=== PATIENT | male | born 1955 | race Caucasian/White ===

== ENCOUNTER 2021-09-11 09:50 | Day surgery (SDC) | payer OTHER, MEDICARE ==
[~2021-09-11 09:50] MED LIST: Lactated Ringers 1,000 ML IV SCH
--- NOTE | 2021-09-11 11:20 | PCM.PREANE ---
Preanesthetic Assessment - Procedure Proposed Procedure: Colonoscopy - Anesthesia/Transfusion/Family Hx Anesthesia History: Prior Anesthesia Without Reaction Family History of Anesthesia Reaction: No Transfusion History: No Prior Transfusion(s) - Review of Systems General: No Symptoms Pulmonary: No Symptoms (Quit smoking 2002) Cardiovascular: No Symptoms (HTN, HLD) Gastrointestinal: No Symptoms Neurological: No Symptoms Other: Reports: None (h/o kidney stones) - Physical Assessment NPO Status Date: 09/10/21 NPO Status Time: 20:30 Vital Signs: Last Vital Signs Temp 96.4 F L 09/11/21 10:00 Pulse 50 L 09/11/21 10:00 Resp 15 09/11/21 10:00 BP 134/75 09/11/21 10:00 Pulse Ox 99 09/11/21 10:00 Height: 5 ft 10 in Weight: 102.058 kg ASA Class: 2 Mental Status: Alert & Oriented x3 Airway Class: Mallampati = 3 Dentition: Reports: Dentures Thyro-Mental Finger Breadths: 3 Mouth Opening Finger Breadths: 3 ROM/Head Extension: Full Lungs: Clear to Auscultation, Normal Respiratory Effort Cardiovascular: Regular Rate, Regular Rhythm - Lab Values: Laboratory Last Values SARS-CoV-2 RNA (JOCELYNE) NEGATIVE (NEGATIVE) 09/11/21 09:23 - Allergies Allergies/Adverse Reactions: Allergies Allergy/AdvReac Type Severity Reaction Status Date / Time lithium Allergy Jaundice Verified 09/05/21 09:04 - Acknowledgements Anesthesia Type Planned: General Anesthesia Pt an Appropriate Candidate for the Planned Anesthesia: Yes Alternatives and Risks of Anesthesia Discussed w Pt/Guardian: Yes Pt/Guardian Understands and Agrees with Anesthesia Plan: Yes PreAnesthesia Questionnaire HEENT History: Reports: Hard of Hearing, Other (See Below) Other HEENT History: uses reading glasses, has upper and lower dentures Cardiovascular History: Reports: High Cholesterol, Hypertension Respiratory History: Reports: None Genitourinary History: Reports: BPH, Renal Calculus Musculoskeletal History: Reports: Back Pain, Chronic Psychiatric History: Reports: Bipolar Endocrine/Metabolic History: Reports: Obesity/BMI 30+ Hematologic History: Reports: None Immunologic History: Reports: None Oncologic (Cancer) History: Reports: None Dermatologic History: Reports: Other (See Below) Other Dermatologic History: hx of MRSA - Past Surgical History Head Surgeries/Procedures: Reports: None GI Surgical History: Reports: Cholecystectomy, Colonoscopy Male Surgical History: Reports: Lithotripsy ([facility]) Neurological Surgical History: Reports: Lumbar Spine Other Neurological Surgeries/Procedures: unknown type of surgery - denies hardware Musculoskeletal Surgical History: Reports: Other (See Below) Other Musculoskeletal Surgeries/Procedures:: excision of Lipoma - SUBSTANCE USE Tobacco Use Status *Q: Former Tobacco User Tobacco Use Within Last Twelve Months: No Recreational Drug Use History: Yes - HOME MEDS Home Medications: Home Meds Cholecalciferol (Vitamin D3) [Vitamin D3] 2,000 unit PO QPM 09/05/21 [History] Divalproex Sodium [Divalproex Sodium ER] 1,000 mg PO QPM 09/05/21 [History] Naproxen Sodium 220 mg PO ASDIRECTED PRN 09/05/21 [History] Simvastatin 20 mg PO QPM 09/05/21 [History] Tamsulosin HCl 0.4 mg PO QPM 09/05/21 [History] lisinopriL [Lisinopril] 5 mg PO QPM 09/05/21 [History] - CURRENT (IN HOUSE) MEDS Current Meds: Current Medications Lactated Ringer's (Ringers, Lactated) 1,000 mls @ 125 mls/hr IV ASDIRECTED KULWINDER Last Admin: 09/11/21 10:44 Dose: 125 mls/hr Documented by:
[2021-09-11] MEDS ORDERED: Propofol 200 MG/20 ML SDV ONE ×2 (11:21→11:33)
[2021-09-11] MEDS ORDERED: fentaNYL 100 MCG/2 ML SDV ONE (11:21)
--- NOTE | 2021-09-11 12:24 | PCM.OPNOTE ---
- General Post-Op/Procedure Note Date of Surgery/Procedure: 09/11/21 Operative Procedure(s): Colonoscopy Findings: Normal colon dictation number [id number] Pre Op Diagnosis: Screening colonoscopy Post-Op Diagnosis: Normal colonoscopy Anesthesia Technique: Moderate Sedation Primary Surgeon: Stephan Rodriguez Complications: None Condition: Good
--- NOTE | 2021-09-11 12:33 | PCM.POSTAN ---
POST ANESTHESIA ASSESSMENT - MENTAL STATUS Mental Status: Alert, Oriented - VITAL SIGNS Vital Signs: Last Vital Signs Temp 96.4 F L 09/11/21 10:00 Pulse 50 L 09/11/21 10:00 Resp 15 09/11/21 10:00 BP 134/75 09/11/21 10:00 Pulse Ox 99 09/11/21 10:00 - RESPIRATORY Respiratory Status: Respiratory Rate WNL, Airway Patent, O2 Saturation Stable - CARDIOVASCULAR CV Status: Pulse Rate WNL, Blood Pressure Stable - GASTROINTESTINAL GI Status: No Symptoms - PAIN Pain Score: 0 - POST OP HYDRATION Hydration Status: Adequate & Stable
--- NOTE | 2021-09-11 12:56 | PCM48HPAN ---
Post Anesthesia Note - EVALUATION WITHIN 48HRS OF ANESTHETIC Vital Signs in Normal Range: Yes Patient Participated in Evaluation: Yes Respiratory Function Stable: Yes Airway Patent: Yes Cardiovascular Function Stable: Yes Hydration Status Stable: Yes Pain Control Satisfactory: Yes Nausea and Vomiting Control Satisfactory: Yes Mental Status Recovered: Yes Vital Signs: Last Vital Signs Temp 97.3 F 09/11/21 12:25 Pulse 62 09/11/21 12:41 Resp 12 09/11/21 12:41 BP 101/62 09/11/21 12:41 Pulse Ox 96 09/11/21 12:41 - COMMENTS/OBSERVATIONS Free Text/Narrative:: Pt doing well post-op. VSS. No apparent anesthetic complications. Dr. Avni Quevedo
--- NOTE | 2021-09-11 13:09 | OR ---
SURGEON: ADRIAN ARNOLD MD DATE OF PROCEDURE: 09/11/2021 PREOPERATIVE DIAGNOSIS: Screening colonoscopy. POSTOPERATIVE DIAGNOSIS: Normal colonoscopy. PRIMARY SURGEON: Adrian Arnold MD ANESTHESIA: With anesthesiologist. EXTENT OF THE COLONOSCOPY: To the cecum. BOWEL PREP: Very good. LIMITATIONS: None. REASON FOR PROCEDURE: Patient is a pleasant 66-year-old gentleman. His last colonoscopy was 10 years ago that he says was normal. He denies any blood in his stool. Denies any family history of colon cancer. PROCEDURE IN DETAIL: Physical examination was performed. The major risks and benefits associated with the procedure were explained to the patient in detail. The patient verbalized understanding and agreement of the same. The patient was then connected to the appropriate monitoring devices and IV started. EKG, pulse, pulse oximetry, blood pressure, and capnography were monitored throughout the entire procedure. Continuous oxygen and sedation were provided by the anesthesiologist. The patient was placed in left lateral decubitus position. Sedation was began. After adequate sedation was achieved, digital rectal exam was performed. No rectal masses or polyps felt. Now, a well-lubricated Olympus colonoscope was inserted in the rectum and advanced under direct visualization to the level of the cecum. Cecum was identified by both visual and anatomic landmarks. Photographs were taken of the cecal cap and terminal ileum was intubated. The scope was then slowly withdrawn in a circular fashion looking at the color, texture, anatomy, and integrity of mucosa from the cecum to the anal canal. No lesions or polyps were seen. The patient had some very minimal liquid stool which was suctioned and irrigated out for an excellent look at the mucosa. The scope was retroflexed in the rectum. Scope was then completely removed and the procedure was terminated. ENDOSCOPIC DIAGNOSIS: Normal colonoscopy. RECOMMENDATIONS: Followup colonoscopy in 10 years. He will need one sooner if he develops signs and symptoms such as change in bowel habits or blood in stool. AYDEE / NISHI /[id number]
== END 2021-09-11 13:05 | disposition home or self-care (01) ==
LOC: MW.SDS 09:50
PROVIDERS: ATTEND Surgery
DX: Z12.11 Encounter for screening for malignant neoplasm of colon (principal); N40.0 Benign prostatic hyperplasia without lower urinary tract symptoms; I10 Essential (primary) hypertension; R73.03 Prediabetes; E66.9 Obesity, unspecified; Z87.891 Personal history of nicotine dependence; Z68.32 Body mass index [BMI] 32.0-32.9, adult; Z88.8 Allergy status to other drugs, medicaments and biological substances; Z79.899 Other long term (current) drug therapy; Z90.49 Acquired absence of other specified parts of digestive tract; Z98.890 Other specified postprocedural states; Z01.812 Encounter for preprocedural laboratory examination; Z20.822 Contact with and (suspected) exposure to COVID-19
CPT/HCPCS: 45378; 87635; J2704; J3010; J7120; 00812; U0002